=== PATIENT | male | born 1995 | race Caucasian/White ===

== ENCOUNTER 2018-09-28 15:24 | Emergency (ER) | payer BC ==
[2018-09-28 16:01] VITALS: BP 150/63
--- NOTE | 2018-09-28 16:37 | ED ---
Throat Pain/Nasal Congestion - HPI Summary HPI Summary: 23 yr old male with sore throat. Onset 3-4 days ago. No fever. No runny nose , no coughing. The patient states his symptoms are moderate. He has a history of recurrent strep. No drooling, no stridor. No other complaints. - History of Current Complaint Chief Complaint: UCGeneralIllness Time Seen by Provider: 09/28/18 16:22 - Allergies/Home Medications Allergies/Adverse Reactions: Allergies Allergy/AdvReac Type Severity Reaction Status Date / Time No Known Allergies Allergy Verified 09/28/18 15:56 Home Medications: Home Medications NK [No Home Medications Reported] 09/28/18 [History Confirmed 09/28/18] PMH/Surg Hx/FS Hx/Imm Hx Infectious Disease History: No Infectious Disease History: Denies: Traveled Outside the [place] in Last 30 Days - Family History Known Family History: Positive: None - Social History Occupation: Student Alcohol Use: Occasionally Substance Use Type: Reports: None Smoking Status (MU): Never Smoked Tobacco Review of Systems Constitutional: Negative Positive: Sore Throat All Other Systems Reviewed And Are Negative: Yes Physical Exam Triage Information Reviewed: Yes Vital Signs On Initial Exam: Initial Vitals Temp Pulse Resp BP Pulse Ox 97.5 F 74 16 150/63 100 09/28/18 15:57 09/28/18 15:57 09/28/18 15:57 09/28/18 15:57 09/28/18 15:57 Vital Signs Reviewed: Yes Appearance: Positive: Well-Appearing, No Pain Distress Skin: Positive: Warm Head/Face: Positive: Normal Head/Face Inspection Eyes: Positive: EOMI ENT: Positive: Pharyngeal erythema Neck: Positive: Nontender Respiratory/Lung Sounds: Positive: Clear to Auscultation, Breath Sounds Present Cardiovascular: Positive: RRR. Negative: Murmur Abdomen Description: Negative: Distended Musculoskeletal: Positive: Strength/ROM Intact Neurological: Positive: Sensory/Motor Intact, Alert, Oriented to Person Place, Time, CN Intact II-III Psychiatric: Positive: Normal - Joshua Coma Scale Best Eye Response: 4 - Spontaneous Best Motor Response: 6 - Obeys Commands Best Verbal Response: 5 - Oriented Coma Scale Total: 15 Diagnostics - Vital Signs Vital Signs Temp Pulse Resp BP Pulse Ox 09/28/18 15:57 97.5 F 74 16 150/63 100 - Laboratory Lab Statement: Any lab studies that have been ordered have been reviewed, and results considered in the medical decision making process. EENT Course/Dx - Course Course Of Treatment: neg rapid strep. Patient with phayrngitis, URI. DC home. FU with [facility]. - Diagnoses Provider Diagnoses: Upper respiratory infection, Hypertension Discharge - Sign-Out/Discharge Documenting (check all that apply): Patient Departure All imaging exams completed and their final reports reviewed: No Studies - Discharge Plan Condition: Good Disposition: HOME Patient Education Materials: Hypertension (ED), Upper Respiratory Infection (ED ) Referrals: No Primary Care Phys,NOPCP [Primary Care Provider] - [facility] [place] [facility]FERR[facility] [Outside] [facility] [Outside] - Billing Disposition and Condition Condition: GOOD Disposition: Home
== END 2018-09-28 16:45 | disposition home or self-care (01) ==
LOC: UCCORT 15:24
DX: J06.9 Acute upper respiratory infection, unspecified (principal); I10 Essential (primary) hypertension
CPT/HCPCS: 87651; 99201; G0463

== ENCOUNTER 2018-10-15 20:57 | Emergency (ER) | payer BC ==
[2018-10-15 21:23] VITALS: BP 131/76
--- NOTE | 2018-10-15 22:13 | UC ---
HPI Febrile Illness - HPI Summary HPI Summary: 3 day history of fever, diarrhea x 2 days with watery, non-bloody stool, one episode of emesis last night. Increasing nausea tonight. No cough, no headache, diffuse aches and thighs were achey today. No ravel, no infectious contacts. 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 - here with his girlfriend Onset/Duration: Started Days Ago - 3 Initial Severity: Moderate Current Severity: Moderate Pain Intensity: 9 Aggravating Factors: Nothing Alleviating Factors: Nothing Associated Signs and Symptoms: Diarrhea, Nausea, Stiff Neck, Vomiting - Risk Factors Pseudomonas Risk Factors: Negative - Allergy/Home Medications Allergies/Adverse Reactions: Allergies Allergy/AdvReac Type Severity Reaction Status Date / Time No Known Allergies Allergy Verified 10/15/18 21:15 Home Medications: Home Medications Acetaminophen TAB* [Tylenol TAB*] 650 mg PO Q4H PRN 10/15/18 [History Confirmed 10/15/18] Dm/PE/Acetaminophen/Doxylamine [Daytime-Nighttime Cold-Flu] 2 each PO BID [History Confirmed 10/15/18] Ibuprofen TAB* [Advil TAB*] 400 mg PO Q6H PRN 10/15/18 [History Confirmed ] PMH/Surg Hx/FS Hx/Imm Hx Previously Healthy: Yes - Surgical History Surgical History: None - Family History Known Family History: Positive: None, Non-Contributory - Social History Occupation: Student Lives: Dormitory/Roommates Alcohol Use: Occasionally Substance Use Type: None Smoking Status (MU): Never Smoked Tobacco Review of Systems All Other Systems Reviewed And Are Negative: Yes Constitutional: Positive: Fatigue Skin: Positive: Negative Eyes: Positive: Negative ENT: Positive: Negative Respiratory: Positive: Negative Cardiovascular: Positive: Negative Gastrointestinal: Positive: Vomiting, Diarrhea Motor: Positive: Weakness Neurovascular: Positive: Negative Musculoskeletal: Positive: Negative Psychological: Positive: Negative Is Patient Immunocompromised?: No Physical Exam Appearance: Well-Nourished, Ill-Appearing Vital Signs: Initial Vital Signs Temp 101.7 F 10/15/18 21:18 Pulse 101 10/15/18 21:18 Resp 24 10/15/18 21:18 BP 131/76 10/15/18 21:18 Pulse Ox 98 10/15/18 21:18 Eye Exam: Normal Eyes: Positive: Conjunctiva Clear ENT: Positive: Pharynx normal Neck: Positive: Supple, Nontender Respiratory: Positive: Lungs clear, Normal breath sounds Cardiovascular: Positive: RRR, Tachycardia Abdomen Description: Positive: Nontender, Soft Bowel Sounds: Positive: Present Musculoskeletal Exam: Normal Neurological: Positive: Alert, Muscle Tone Normal Psychological Exam: Normal Skin Exam: Normal Re-Evaluation - Re-Evaluation First Eval Re-Evaluation Time: 22:35 Change: Improved - Vomited post zofran, but overall he felt better post emeses Course/Dx - Course Course Of Treatment: Continue oral rehydration with advancemen to ZAID diet. Discussed use of another dose of ondansetron, but suggested NPO for the next hours, followed by repeat zofran and hydration. If continued emesis, aware to return to the emergency room for evaluation and possible iv fluids. - Febrile Illness Differential Diagnoses: Abd. Infection, Other: - viral gastro - Diagnoses Provider Diagnosis: Viral syndrome Discharge - Sign-Out/Discharge Documenting (check all that apply): Patient Departure All imaging exams completed and their final reports reviewed: No Studies - Discharge Plan Condition: Stable Disposition: HOME Prescriptions: Ondansetron [Ondansetron Odt] 4 mg PO Q6H PRN #5 tab.rapdis PRN Reason: Nausea/Vomiting Patient Education Materials: Viral Syndrome (ED), Nutrition Tips for Relief of Diarrhea (ED) Referrals: No Primary Care Phys,NOPCP [Primary Care Provider] - Additional Instructions: You have been given 8 mg of ondansetron. After 30 minutes, begin rehydration using Gatorade or an electrolyte solution or soup broth. Take acetaminophen 650mg every 6 hours for control of fever. If fever persists along with difficulty maintaining fluids, please go to the emergency room for work up and rehydration. Once the nausea has improved, progress to a diet to control diarrhea. - Billing Disposition and Condition Condition: STABLE Disposition: Home
[2018-10-15] MEDS ORDERED: Ondansetron ODT TAB* 4 MG PO ONE ×2 (22:17→22:44)
== END 2018-10-15 22:59 | disposition home or self-care (01) ==
LOC: UCCORT 20:57
DX: B34.9 Viral infection, unspecified (principal)
CPT/HCPCS: 99212; A9270-GY; G0463